=== PATIENT | male | born 1985 | race Caucasian/White ===

== ENCOUNTER 2017-02-24 16:28 | Emergency (ER) | payer OTHER, MEDICARE ==
--- NOTE | 2017-02-24 17:47 | ED ---
General Adult HPI - General Chief complaint: Extremity Problem,Nontraumatic Stated complaint: Ankle Pain Time Seen by Provider: 02/24/17 17:33 Source: patient Mode of arrival: ambulatory Limitations: no limitations - History of Present Illness Initial comments: Clyde is a 32-year-old male who presents to the emergency department for evaluation of nontraumatic left ankle pain. Patient reports that yesterday evening he began feeling some aching in the lateral side of his left ankle. He states that he has not attempted any measures to relieve this pain. He has not tried ice, Tylenol, Motrin, rest. He reports he's been able to ambulate on the ankle throughout the day however he does feel that the little bit sore so he came to the emergency department for further evaluation. Patient has no history of injury or surgeries to this ankle. He cannot recall any recent injuries. Patient denies any additional complaints. - Related Data Previous Rx's Medication Instructions Recorded Ibuprofen [Motrin] 800 mg PO TID #30 tab 02/24/17 Allergies Allergy/AdvReac Type Severity Reaction Status Date / Time No Known Allergies Allergy Verified 02/24/17 18:18 Review of Systems ROS Statement: Those systems with pertinent positive or pertinent negative responses have been documented in the HPI. ROS Other: All systems not noted in ROS Statement are negative. Constitutional: Denies: fever, chills Respiratory: Denies: cough, dyspnea Cardiovascular: Denies: chest pain, palpitations Endocrine: Denies: fatigue Gastrointestinal: Denies: abdominal pain, nausea, vomiting Musculoskeletal: Reports: joint swelling, arthralgia. Denies: back pain Skin: Denies: rash, lesions, change in color Neurological: Denies: headache, weakness Psychiatric: Denies: anxiety, depression Hematological/Lymphatic: Denies: easy bleeding, easy bruising Past Medical History Past Medical History: No Reported History History of Any Multi-Drug Resistant Organisms: None Reported Past Surgical History: No Surgical Hx Reported Past Anesthesia/Blood Transfusion Reactions: No Reported Reaction Smoking Status: Current every day smoker Past Alcohol Use History: None Reported Past Drug Use History: None Reported - Past Family History Mother History Unknown: Yes Additional Family Medical History / Comment(s): Mother is alive at age 47 with history of ruptured splenic to me from an accident. Father History Unknown: Yes Additional Family Medical History / Comment(s): Father is alive at age 47 with no major medical problems. Sister(s) Additional Family Medical History / Comment(s): He has one sister that is healthy. He has one child is healthy. General Exam Limitations: no limitations General appearance: alert, in no apparent distress Head exam: Present: atraumatic, normocephalic Eye exam: Present: normal appearance, PERRL ENT exam: Present: normal exam Neck exam: Present: full ROM Respiratory exam: Absent: respiratory distress Cardiovascular Exam: Present: regular rate GI/Abdominal exam: Present: soft. Absent: distended Rectal exam: Present: deferred Extremities exam: Present: normal inspection, full ROM, normal capillary refill , joint swelling. Absent: tenderness, pedal edema, calf tenderness Left Hip exam: Present: full ROM. Absent: tenderness Upper Leg exam: Present: full ROM. Absent: tenderness Knee exam: Present: full ROM. Absent: tenderness Lower Leg exam: Present: full ROM. Absent: tenderness Ankle exam: Present: full ROM, tenderness, swelling. Absent: abrasion, laceration, ecchymosis, deformity, crepitus, dislocation, erythema Foot/Toe exam: Present: full ROM, dislocation (skin discoloration of bilateral feet consistent with color of red leather boots). Absent: tenderness, swelling , abrasion, laceration, ecchymosis, deformity, crepitus Neurovascular tendon exam: Present: no vascular compromise Gait: observed and normal Back exam: Present: normal inspection Neurological exam: Present: alert, oriented X3 Psychiatric exam: Present: normal affect Skin exam: Present: warm, dry, intact, other (color change to feet as noted above) Course Vital Signs 02/24/17 16:34 Temperature 99.8 F H Pulse Rate 97 Respiratory 18 Rate Blood Pressure 133/87 O2 Sat by Pulse 98 Oximetry - Reevaluation(s) Reevaluation #1: Reevaluated, resting comfortably in bed. updated on x-ray findings of a bone spur. We'll treat with by mouth NSAIDs, rest and ice. Patient was given referral to outpatient orthopedic surgeon for follow-up. 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 These results were discussed with the patient who expressed understanding. Patient will be discharged home with NSAIDs for pain management advised to rest and ice his foot and to follow-up with orthopedic surgery or podiatry for further evaluation. All questions pertaining to care were answered to the best of my ability and the patient was discharged home in stable condition. Disposition Clinical Impression: Bone spur of ankle Disposition: HOME SELF-CARE Condition: Good Instructions: Swollen Joint (ED) Prescriptions: Ibuprofen [Motrin] 800 mg PO TID #30 tab Referrals: None,Stated [Primary Care Provider] - 1-2 days Momo Schmitz DO [Doctor of Osteopathic Medicine] - 1-2 days Time of Disposition: 18:29
--- NOTE | 2017-02-24 18:07 | XR ---
EXAMINATION TYPE: XR ankle complete LT DATE OF EXAM: 02/24/2017 CLINICAL HISTORY: Generalized left ankle pain and swelling for one day TECHNIQUE: Frontal, lateral and oblique images of the left ankle are obtained. COMPARISON: None. FINDINGS: There is no acute fracture/dislocation evident in the left ankle. The ankle mortise appea rs within normal limits. There is prominent bony projection from the anterior aspect of the superior talus. There is adjacent spurring in the anterior aspect of distal tibia. The overlying soft tissue appears unremarkable. IMPRESSION: There is suspected osteochondroma with associated degenerative change from the anterior superior talus.
[2017-02-24 18:40] VITALS: BP 144/80; PULSE 78; RESP 16; TEMP 98
== END 2017-02-24 18:39 | disposition home or self-care (01) ==
LOC: EC 16:28
DX: M77.9 Enthesopathy, unspecified (principal); F17.200 Nicotine dependence, unspecified, uncomplicated
CPT/HCPCS: 99283

== ENCOUNTER → 2018-06-30 | Outpatient (CLI) | payer MEDICARE, OTHER ==
--- NOTE | 2018-06-30 21:52 | US ---
EXAMINATION TYPE: US abdomen complete DATE OF EXAM: 06/30/2018 COMPARISON: NONE CLINICAL HISTORY: 33-year-old male K75.81Nonalcoholic steatohepatitis. TECHNIQUE: Multiple sonographic images of the abdomen are obtained. FINDINGS: EXAM MEASUREMENTS: Liver Length: 18.8 cm Gallbladder Wall: 0.2 cm CBD: 0.6 cm Spleen: 10.0 cm Right Kidney: 10.4 x 4.8 x 5.8 cm Left Kidney: 10.3 x 6.6 x 6.0 cm Pancreas: Obscured by bowel gas Liver: Mildly enlarged at 18.8 cm; very echogenic and attenuating. No focal lesion seen. Gallbladder: wnl Evidence for sonographic Felipe's sign: No CBD: upper limits of normal Spleen: wnl Right Kidney: No hydronephrosis or masses seen Left Kidney: No hydronephrosis; 9 mm echogenic focus seen in upper hilum, possible calculus versus p rominent vascular reflector. Upper IVC: wnl Abd Aorta: The majority is obscured by overlying bowel gas IMPRESSION: 1. Hepatic steatosis. Correlate with LFTs, lipid profile, and patient risk factors. 2. The bile duct is borderline dilated at 6 mm. Correlate with alkaline phosphatase and bilirubin lev els to exclude the possibility of early biliary obstruction. 3. Either a 9 mm nonobstructive left renal calculus versus a prominent vasculature.
== END | disposition home or self-care (01) ==
LOC: RADUSWWP 10:27
PROVIDERS: ATTEND Internal Medicine
DX: K76.0 Fatty (change of) liver, not elsewhere classified (principal)
CPT/HCPCS: 76700